=== PATIENT | female | born 1995 | race Caucasian/White ===

== ENCOUNTER 2024-05-13 17:20 | Outpatient (CLI) | payer BC, SELFPAY | END 2024-05-13 17:21 | disposition home or self-care (01) | PROVIDERS: PCP Emergency Medicine; Visit Provider Emergency Medicine | DX: R53.83 Other fatigue (principal); Z13.228 Encounter for screening for other metabolic disorders; Z13.220 Encounter for screening for lipoid disorders; Z13.29 Encounter for screening for other suspected endocrine disorder | CPT/HCPCS: 80053; 80061; 84439; 84443 ==